=== PATIENT | male | born 1935 | race African-American/Black ===

== ENCOUNTER 2021-07-10 14:20 | Inpatient (IN) | payer OTHER ==
[~2021-07-10] VITALS: Ht 185.4 cm; Wt 47.2 kg
[2021-07-10 16:02] LABS: HEMATOCRIT. 34.4 % (42.0-52.0); HEMOGLOBIN. 10.9 g/dL (14.0-18.0); MEAN CORPUSCULAR HEMOGLOBIN 19.9 pg (28.0-32.0); MEAN CORPUSCULAR VOLUME 62.8 fL (80.0-94.0); MEAN PLATELET VOLUME 8.5 fl (7.4-10.4); PLATELET 165 x1000/uL (130-400); RED BLOOD CELL COUNT 5.47 mill/uL (4.7-6.1); RED CELL DISTRIBUTION WIDTH 19.1 % (11.6-14.6)
[2021-07-10 16:08] LABS: CHLORIDE 111 mEq/L (98-107)
[2021-07-10 17:00] LABS: PLATELET ESTIMATE NORMAL
[2021-07-10] MEDS ORDERED: ASPIRIN 325MG EC TABLET PO NR (17:30)
[2021-07-10] MEDS ORDERED: DOCUSATE SODIUM 100MG CAPSULE PO PRN (20:45)
[2021-07-10] MEDS ORDERED: MAGNESIUM/ALUMINUM HYDROXIDE/SIMETHICONE 30ML UDC PO PRN (20:45)
[2021-07-10] MEDS ORDERED: DIPHENHYDRAMINE 50MG/ML VIAL IV PRN (20:45)
[2021-07-10] MEDS ORDERED: ACETAMINOPHEN 325MG TABLET PO PRN ×2 (20:45)
[2021-07-10] MEDS ORDERED: ONDANSETRON HCL 4MG/2ML INJ IV PRN (20:45)
[2021-07-10] MEDS ORDERED: GUAIFENESIN 200MG/10ML SUGAR FREE UDC PO PRN (20:45)
[2021-07-10] MEDS ORDERED: IPRATROPIUM/ALBUTEROL 0.5-3(2.5)MG/3ML NEB HHN PRN (20:45)
[2021-07-10] MEDS ORDERED: CLONIDINE 0.1MG TABLET PO PRN (20:45)
[2021-07-10] MEDS ORDERED: AMLODIPINE 5MG TABLET PO ONE (21:00)
[2021-07-10 21:29] LABS: CLARITY URINE CLEAR (CLEAR); COLOR URINE YELLOW (YELLOW); KETONES URINE NEGATIVE (NEGATIVE); LEUKOCYTE ESTERASE URINE TRACE (NEGATIVE); NITRITE URINE NEGATIVE (NEGATIVE); OCCULT BLOOD URINE NEGATIVE (NEGATIVE); PROTEIN URINE NEGATIVE (NEGATIVE); SPECIFIC GRAVITY URINE 1.011 (1.005-1.030)
[2021-07-10 21:42] LABS: CANNABINOID URINE SCREEN NEGATIVE (NEGATIVE); METHADONE URINE SCREEN NEGATIVE (NEGATIVE); OPIATES URINE SCREEN NEGATIVE (NEGATIVE); PHENCYCLIDINE URINE SCREEN NEGATIVE (NEGATIVE)
[2021-07-10 21:43] LABS: *AMPHETAMINES SCREEN URINE NEGATIVE (NEGATIVE); *BARBITURATES SCREEN URINE NEGATIVE (NEGATIVE); *BENZODIAZEPINES SCREEN URINE NEGATIVE (NEGATIVE); *COCAINE SCREEN URINE NEGATIVE (NEGATIVE)
[2021-07-11 00:10] VITALS: BP_SYST 145; BP_SYST 168; BP_DIAS 62; BP_DIAS 75
[2021-07-11 08:00] VITALS: BP 140/78
[2021-07-11] MEDS ORDERED: PNEUMOCOCCAL 23-VAL P-SAC VAC 0.5 ML IM ONE (08:00)
[2021-07-11] MEDS ORDERED: LISINOPRIL 10MG TABLET PO SCH (09:00)
[2021-07-11] MEDS ORDERED: ASPIRIN 81MG EC TABLET PO SCH (09:00)
[2021-07-11 10:00] VITALS: BP 142/76
[2021-07-11 10:44] LABS: BASOPHILS % 0.4 % (0.0-2.0); EOSINOPHILS % 0.5 % (0.0-5.0); HEMATOCRIT. 34.6 % (42.0-52.0); HEMOGLOBIN. 11.2 g/dL (14.0-18.0); LYMPHOCYTES % 17.3 % (20.0-50.0); MEAN CORPUSCULAR HEMOGLOBIN 20.2 pg (28.0-32.0); MEAN CORPUSCULAR VOLUME 62.6 fL (80.0-94.0); MONOCYTES % 12.3 % (2.0-8.0); NEUTROPHILS % 69.5 % (40.0-76.0); PLATELET 145 x1000/uL (130-400); RED BLOOD CELL COUNT 5.53 mill/uL (4.7-6.1); RED CELL DISTRIBUTION WIDTH 19.7 % (11.6-14.6)
[2021-07-11 12:00] VITALS: BP 147/82
[2021-07-11] MEDS ORDERED: AMLODIPINE 5MG TABLET PO SCH (12:00)
[2021-07-11 12:10] LABS: CHLORIDE 109 mEq/L (98-107)
[2021-07-11 12:20] LABS: HDL CHOLESTEROL 51 mg/dL (40-59)
[2021-07-11 12:21] LABS: LDL CHOLESTEROL 61 mg/dL (5-100)
[2021-07-11 12:24] LABS: CREATINE KINASE 119 IU/L (39-308)
[2021-07-11] MEDS ORDERED: HYDROCODONE/ACETAMINOPHEN 5/325MG TABLET PO PRN (13:00)
[2021-07-11 16:00] VITALS: BP 150/90
[2021-07-11] MEDS ORDERED: FAMOTIDINE 20MG TABLET PO SCH (21:00)
[2021-07-12 06:33] LABS: CHLORIDE 109 mEq/L (98-107)
[2021-07-12 06:39] LABS: BASOPHILS % 0.4 % (0.0-2.0); HEMATOCRIT. 34.8 % (42.0-52.0); HEMOGLOBIN. 11.3 g/dL (14.0-18.0); LYMPHOCYTES % 19.4 % (20.0-50.0); MEAN CORPUSCULAR HEMOGLOBIN 20.3 pg (28.0-32.0); MEAN CORPUSCULAR VOLUME 62.3 fL (80.0-94.0); MEAN PLATELET VOLUME 8.8 fl (7.4-10.4); MONOCYTES % 14.4 % (2.0-8.0); NEUTROPHILS % 64.8 % (40.0-76.0); PLATELET 145 x1000/uL (130-400); RED BLOOD CELL COUNT 5.59 mill/uL (4.7-6.1); RED CELL DISTRIBUTION WIDTH 19.7 % (11.6-14.6)
[2021-07-12 12:00] VITALS: BP 140/68
== END 2021-07-12 14:55 | DRG 641 ==
LOC: ER 14:20 → 5WST 17:50 → ENRESERV 22:55 → ER 07-11 05:25
PROVIDERS: ADMIT Internal Medicine; ATTEND Internal Medicine
DX: E86.0 Dehydration (principal); D64.9 Anemia, unspecified; F17.210 Nicotine dependence, cigarettes, uncomplicated; I45.10 Unspecified right bundle-branch block; R73.9 Hyperglycemia, unspecified; Z20.822 Contact with and (suspected) exposure to COVID-19; Z59.00 Homelessness unspecified; I10 Essential (primary) hypertension
CPT/HCPCS: 36415; 71045; 80048; 80053; 80061; 80305; 81003; 82550; 82962; 83735; 84443; 84484; 85025; 87426; 90732; 93005; 93306; 93970; 97162; 99285